=== PATIENT | female | born 1980 | race Caucasian/White ===

== ENCOUNTER 2018-02-19 23:50 | Inpatient (IN) | payer BC, OTHER ==
[2018-02-20] MEDS ORDERED: BUTORPHANOL 1 MG/ML 1 ML VIAL IV PRN (00:15)
[2018-02-20] MEDS ORDERED: METHYLERGONOVINE 0.2 MG/ML 1 ML AMP IM PRN (00:30)
[2018-02-20] MEDS ORDERED: TERBUTALINE 1 MG/ML VIAL SQ PRN (00:30)
[2018-02-20] MEDS ORDERED: CARBOPROST TROMETHAMINE 250 MCG/ML 1 ML AMP IM PRN (00:30)
[2018-02-20] MEDS ORDERED: LIDOCAINE 1% (PF) 10 MG/ML (30 ML SDV) SQ PRN (00:30)
[2018-02-20] MEDS ORDERED: OXYTOCIN 10 UNIT/ML 1 ML VIAL IM PRN (00:30)
[2018-02-20] MEDS: LACTATED RINGERS 1,000 ML IV SCH ×3 (00:53→19:10)
[2018-02-20 00:58] LABS: Anisocytosis Slight; Basophils % (A) 0 %; Eosinophils # (A) 0.2 k/uL (0-0.7); Eosinophils % (A) 2 %; HCT 36.4 % (34.0-46.0); HGB 11.7 gm/dL (11.4-16.0); Lymphocytes # (A) 1.9 k/uL (1.0-4.8); Lymphocytes % (A) 17 %; MCH 28.1 pg (25.0-35.0); MCHC 32.1 g/dL (31.0-37.0); MCV 87.5 fL (80.0-100.0); Mean Platelet Volume 8.6; Monocytes # (A) 0.5 k/uL (0-1.0); Monocytes % (A) 4 %; Neutrophils # (A) 8.3 k/uL (1.3-7.7); Neutrophils % (A) 74 %; Platelet Count 182 k/uL (150-450); RBC 4.16 m/uL (3.80-5.40); RDW 16.8 % (11.5-15.5); WBC 11.1 k/uL (3.8-10.6)
[2018-02-20 01:22] VITALS: BMI 34.3
[2018-02-20] MEDS ORDERED: SODIUM CHLORIDE 0.9% 100 ML BAG ONE (03:30)
[2018-02-20] MEDS ORDERED: ROPIVACAINE 5MG/ML 20ML VIAL ONE (03:30)
[2018-02-20] MEDS ORDERED: fentaNYL (PF) 50 MCG/ML 5 ML AMP ONE (03:30)
[2018-02-20] MEDS: OXYTOCIN 20 UNITS/1000 ML NS 1,000 ML IV SCH (05:00)
--- NOTE | 2018-02-20 10:29 | P.HPOB ---
History of Present Illness H&P Date: 02/20/18 Chief Complaint: 38+ weeks, spontaneous rupture of membranes The patient is a 37-year-old 2 para 1001 admitted at 38+ weeks by early ultrasound with all signs reassuring. Her has been complicated by mild -induced hypertension with normal testing. She also is known to be Rh- and received RhoGAM at 28 weeks. She lastly falls within the category of advanced maternal age and declined any testing for trisomy. On labor and delivery, she is found with documented spontaneous rupture of membranes of clear fluid. Group B strep status is negative. Obstetrical history: 2 para 1001 with 1 term vaginal delivery without apparent complications. Current statistics are listed in history of present illness. EDC of 02/28/2018 was established by an early ultrasound. Laboratory workup demonstrates a blood type of O- with a negative antibody screen. Rubella status is immune. The remainder of the laboratory workup was within normal limits. Early diabetic screen as well as second trimester diabetic screen were within normal limits. Group B strep status is negative. Gynecologic history: Unremarkable with no history of any infections to include STDs. Review of Systems Review of systems is confined to history of present illness. Past Medical History Past Medical History: No Reported History History of Any Multi-Drug Resistant Organisms: None Reported Past Surgical History: Appendectomy Additional Past Surgical History / Comment(s): knee sx Past Anesthesia/Blood Transfusion Reactions: No Reported Reaction Past Psychological History: No Psychological Hx Reported Smoking Status: Never smoker Past Alcohol Use History: None Reported Past Drug Use History: None Reported - Past Family History Father Family Medical History: Coronary Artery Disease (CAD), Hypertension Mother Family Medical History: Hyperlipidemia Medications and Allergies Home Medications Medication Instructions Recorded Confirmed Type Pnv No.95/Ferrous Fum/Folic AC 1 tab PO DAILY 02/20/18 02/20/18 History [ Multivitamin Tablet] Allergies Allergy/AdvReac Type Severity Reaction Status Date / Time No Known Allergies Allergy Verified 02/20/18 00:28 Exam Vital Signs Temp Pulse Resp BP 02/20/18 00:30 98.3 F 101 H 16 140/88 02/20/18 00:28 98.3 F 101 H 16 140/88 Intake and Output 02/19/18 02/20/18 02/20/18 22:59 06:59 14:59 Output Total 550 Balance -550 Output: Urine 550 Straight 550 Other: Weight 90.718 kg In general, this is a well-developed, well-nourished white female in no acute distress. Her heart has a regular rhythm and rate without murmur. Her lungs are clear to auscultation bilaterally in all lopez. Her abdomen is gravid, nondistended, has normal active bowel sounds, is soft, nontender, and without any palpable masses aside from uterine fundus. Her extremities are without any cyanosis, clubbing, or significant edema and are nontender to palpation bilaterally. Most recent digital cervical examination performed by the nurse demonstrates her cervix to be 8 cm dilated, 90% effaced, with the vertex in presentation at -2 station. Spontaneous rupture of membranes has been confirmed. Results Result Diagrams: 02/20/18 00:49 Abnormal Lab Results - Last 24 Hours (Table) 02/20/18 Range/Units 00:49 WBC 11.1 H (3.8-10.6) k/uL RDW 16.8 H (11.5-15.5) % Neutrophils # 8.3 H (1.3-7.7) k/uL Assessment and Plan (1) Spontaneous rupture of amniotic membranes Current Visit: Yes Status: Acute Code(s): HQA0463 - SNOMED Code(s): 158146626 (2) Active labor at term Current Visit: Yes Status: Acute Code(s): FSP1548 - SNOMED Code(s): 88781032 Plan: The patient has been admitted for active management of labor. Pitocin augmentation has been started and an epidural catheter is in place for analgesia. She will continue to have close maternal and surveillance and expectant management will be practiced.
[2018-02-20] MEDS ORDERED: ceFAZolin IN SWFI 2 GM/20 ML SYRINGE IVP ONE (12:24)
[2018-02-20] MEDS ORDERED: CITRIC ACID-SODIUM CITRATE 15 ML CUP PO ONE (12:24)
[2018-02-20] MEDS ORDERED: OXYTOCIN 10 UNIT/ML 1 ML VIAL ONE (12:55)
[2018-02-20] MEDS ORDERED: ONDANSETRON 4 MG/2 ML VIAL ONE (12:55)
[2018-02-20] MEDS ORDERED: KETOROLAC 30 MG/ML 1 ML VIAL ONE (12:55)
[2018-02-20] MEDS ORDERED: MORPHINE SULFATE (PF) 0.3 MG/0.3 ML SYR ONE (12:55)
[2018-02-20] MEDS ORDERED: CHLOROPROCAINE 3% 30 MG/ML 20 ML VIAL ONE (12:55)
[2018-02-20] MEDS ORDERED: PHENYLEPHRINE-0.9% NACL SYG 1 MG/10 ML SYRINGE ONE (12:55)
[2018-02-20] MEDS ORDERED: NALBUPHINE 10 MG/ML VIAL (10ML MDV) ONE (12:55)
[2018-02-20] MEDS ORDERED: diphenhydrAMINE 50 MG/ML 1 ML VIAL IVP PRN ×2 (13:44)
[2018-02-20] MEDS ORDERED: ONDANSETRON 4 MG/2 ML VIAL IVP PRN (13:44)
[2018-02-20] MEDS ORDERED: NALOXONE 0.4 MG/ML 1 ML VIAL IV PRN (13:44)
[2018-02-20] MEDS ORDERED: diphenhydrAMINE 25 MG CAP PO PRN (13:44)
[2018-02-20] MEDS ORDERED: SIMETHICONE 80 MG CHEWABLE PO PRN (13:44)
[2018-02-20] MEDS ORDERED: diphenhydrAMINE 50 MG CAP PO PRN (13:44)
[2018-02-20] MEDS ORDERED: ACETAMINOPHEN TAB 325 MG TAB PO PRN (13:44)
[2018-02-20] MEDS ORDERED: HYDROcodone/APAP 7.5-325MG 1 EACH TAB PO PRN (13:44)
[2018-02-20] MEDS ORDERED: ZOLPIDEM 5 MG TAB PO PRN (13:44)
[2018-02-20] MEDS ORDERED: METOCLOPRAMIDE 5 MG/ML 2 ML VIAL IVP PRN (13:44)
[2018-02-20] MEDS ORDERED: OXYTOCIN 20 UNITS/1000 ML NS 1,000 ML IV SCH (13:45)
--- NOTE | 2018-02-20 13:53 | P.OP ---
Date of Procedure: 02/20/18 Preoperative Diagnosis: #1. 38-5/7 weeks, labor #2. Advanced maternal age #3. Rh- #4. Arrest of dilation and descent #5. Occiput posterior position Postoperative Diagnosis: Same Procedure(s) Performed: #1. Primary low-transverse section Anesthesia: epidural Surgeon: Vikas Munoz Restorative Coordinator #1: Dominik Vega Estimated Blood Loss (ml): 600 IV fluids (ml): 600 Urine output (ml): 200 Pathology: none sent Condition: stable Disposition: floor Operative Findings: Preoperatively, the patient had been making extraordinarily slow progress through the active phase of labor and ultimately progressed to approximately 9 cm to anterior lip. An attempt was made to push past the anterior lip despite the fact that the head remained at -2 station. Further evaluation determined that the fetus was in occiput posterior presentation and that there was no further descent despite adequate pushing. The patient was counseled and taken the operating room where she underwent primary low-transverse section in an incompetent fashion and was delivered of a viable 8 lbs. 10 oz. baby boy with Apgars of 7 at 1 minute and 9 at 5 minutes delivered in the direct occiput posterior position. There was a loose body cord was reduced following delivery of the infant. The placenta was delivered manually, intact, and grossly normal with a grossly normal three-vessel cord. The uterus, tubes, and ovaries were entirely normal to inspection. Description of Procedure: The patient was prepped and draped in usual fashion after epidural anesthesia was bolused by the anesthesiologist. A Pfannenstiel incision was made and extended into the abdominal cavity without difficulty. The bladder peritoneum was left intact as the bladder was far distal to the intended site of incision. A 2 cm incision was made in the lower uterine segment to enter the uterus at which time clear fluid was again noted. The incision was extended in both directions bluntly. The head was encountered relatively deep in the pelvis in the direct occiput posterior position but was easily delivered up and through the incision where the nose and mouth were thoroughly suctioned. The remainder of the infant was delivered onto the field. The body cord was then reduced after delivery as well. The cord was doubly clamped, cut, and the infant passed for resuscitative measures with weight and Apgars as noted above. cord blood was collected for evaluation for the necessity of RhoGAM. A segment of cord was doubly clamped, cut, and set aside should cord gases become necessary. The placenta was delivered manually, intact, and grossly normal with a grossly normal three-vessel cord. Uterus was exteriorized and the interior cavity of the uterus swept of any remaining placental or membranous fragments. The margins of the incision were grasped with Delacruz clamps and the incision was closed in 2 layers. The first layer was a running locking stitch of 0 chromic catgut followed by a running imbricating stitch of 0 chromic catgut. Hemostasis appeared to be excellent. The posterior cul-de-sac was suctioned using a guard and the normal uterine and ovarian findings were noted as above. The uterus was replaced within the abdominal cavity and the gutters swept of any remaining blood, fluid, or clot. The incision was reexamined and found to be hemostatic throughout. The parietal peritoneum was loosely reapproximated and layer of muscles examined and found to be hemostatic. The fascia was closed with 2 running stitches of 0 Vicryl proceeding from the lateral margins to the midpoint. The subcutaneous tissues were irrigated, made hemostatic with the Bovie, and reapproximated with a running stitch of 30 plain catgut. The skin was reapproximated with a running subcuticular stitch of 4-0 Vicryl followed by half-inch Steri-Strips placed with Mastisol. Estimated blood loss for the case was approximately 600 mL. There were no complications. All sponge, instrument, and needle counts were correct. The patient proceeded to the recovery room in stable condition. Both mother and are resting comfortably in recovery.
[2018-02-20] MEDS ORDERED: Rhogam IMMUNE GLOBULIN 1,500 UNIT/1 ML IM ONE (16:42)
[2018-02-20] MEDS: KETOROLAC 30 MG/ML 1 ML VIAL IVP PRN (20:23)
[2018-02-21] MEDS: KETOROLAC 30 MG/ML 1 ML VIAL IVP PRN ×2 (03:44→09:40)
[2018-02-21] MEDS: LACTATED RINGERS 1,000 ML IV SCH ×4 (03:45→23:07)
[2018-02-21] MEDS: SENNOSIDES-DOCUSATE SODIUM 1 EACH TAB PO SCH ×3 (03:46→20:04)
[2018-02-21 07:02] LABS: Anisocytosis Slight; Basophils % (A) 0 %; Eosinophils # (A) 0.1 k/uL (0-0.7); Eosinophils % (A) 1 %; HCT 28.2 % (34.0-46.0); Lymphocytes # (A) 1.5 k/uL (1.0-4.8); Lymphocytes % (A) 12 %; MCH 30.4 pg (25.0-35.0); MCHC 34.6 g/dL (31.0-37.0); MCV 87.9 fL (80.0-100.0); Mean Platelet Volume 8.7; Monocytes # (A) 0.4 k/uL (0-1.0); Monocytes % (A) 3 %; Neutrophils # (A) 10.8 k/uL (1.3-7.7); Neutrophils % (A) 83 %; Platelet Count 152 k/uL (150-450); RBC 3.21 m/uL (3.80-5.40); RDW 17.3 % (11.5-15.5)
[2018-02-21 07:04] LABS: HGB 9.8 gm/dL (11.4-16.0)
--- NOTE | 2018-02-21 07:50 | P.PN ---
Subjective Progress Note Date: 02/21/18 Slept well. Positive flatus. Pain well controlled. No complaints Objective - Vital Signs Vital signs: Vital Signs Temp 98.2 F 02/21/18 04:00 Pulse 81 02/21/18 04:00 Resp 16 02/21/18 04:00 BP 120/84 02/21/18 04:00 Pulse Ox 98 02/21/18 04:00 Intake & Output 02/20/18 02/21/18 02/21/18 18:59 06:59 18:59 Output Total 950 1600 Balance -950 -1600 Output: Urine 950 1600 Straight 550 700 - Constitutional General appearance: Present: average body habitus, cooperative - EENT Eyes: Present: PERRLA ENT: Present: hearing grossly normal - Neck Neck: Present: normal ROM - Respiratory Respiratory: bilateral: CTA - Cardiovascular Rhythm: regular - Gastrointestinal General gastrointestinal: Present: normal bowel sounds - Genitourinary Genitourinary Comment(s): Incision clean and dry, intact, Steri-Strips applied. Fundus firm, midline, symmetric, 18 week size, nontender - Integumentary Integumentary: Present: normal - Neurologic Neurologic: Present: CNII-XII intact - Musculoskeletal Musculoskeletal: Present: strength equal bilaterally - Psychiatric Psychiatric: Present: A&O x's 3, appropriate affect, intact judgment & insight - Labs CBC & Chem 7: 02/21/18 06:42 Labs: Abnormal Lab Results - Last 24 Hours (Table) 02/21/18 Range/Units 06:42 WBC 13.0 H (3.8-10.6) k/uL RBC 3.21 L (3.80-5.40) m/uL Hgb 9.8 L D (11.4-16.0) gm/dL Hct 28.2 L (34.0-46.0) % RDW 17.3 H (11.5-15.5) % Neutrophils # 10.8 H (1.3-7.7) k/uL Assessment and Plan Assessment: Postoperative day #1, doing well Plan: Advance diet and activity. May DC IV. Possible discharge home tomorrow. Time with Patient: Less than 30
[2018-02-21] MEDS: HYDROcodone/APAP 5-325MG 1 EACH TAB PO PRN ×2 (12:06→18:44)
[2018-02-21] MEDS: IBUPROFEN 600 MG TAB PO PRN ×2 (15:39→22:13)
[2018-02-21] MEDS: OXYTOCIN 20 UNITS/1000 ML NS 1,000 ML IV SCH (23:07)
[2018-02-22] MEDS: IBUPROFEN 600 MG TAB PO PRN ×2 (04:17→13:10)
[2018-02-22] MEDS: SENNOSIDES-DOCUSATE SODIUM 1 EACH TAB PO SCH (07:49)
--- NOTE | 2018-02-22 09:40 | P.DS ---
Providers Date of admission: 02/20/18 00:12 Expected date of discharge: 02/22/18 Attending physician: Nella Pope Primary care physician: Nella [facility] Course: This is a 37-year-old white female 2 para 1001 EDC 02/28/2018 at 38-5/7 weeks' gestation. Patient presented in active spontaneous labor, essentially unremarkable. Group B strep cultures negative, rubella status immune. Please see dictated history and physical for details. Patient progressed to the first stage of labor and became completely dilated. There was however arrest of descent in the second stage of labor, with occiput posterior position noted. Decision was made to proceed with primary low transverse section. She underwent a low-transverse section and gave to a liveborn male infant with scores of 7 and 9 at one and 5 minutes respectively. weighed 3910 g or 8 lbs. 10 oz. and was found to be in the direct occiput posterior position. Please see dictated operative note for details. Today the patient is doing very well. She is voiding, ambulating and passing flatus without difficulty. Vital signs are stable and she is afebrile. Fundus is firm in the midline, symmetric and 18 week size. Incision is clean and dry was Steri-Strips applied. [place] is doing well in the nursery and is also ready for discharge home. Patient is being discharged home today in good condition. She will follow-up with me in the office in 2 weeks. I have reminded her no intercourse, tampons or douching. She will use zxjp-hpr-irerazo Aleve as needed for pain. No driving, no heavy lifting, no excessive activities for the next 2 weeks. She will follow-up in the office with me in 2 weeks. I've asked her to call with any fevers shakes or chills, foul smelling or copious lochia, with the passage of large blood clots, with any pain not alleviated by zidj-sdr-vozybzy products , or indeed with any concerns. Patient Condition at Discharge: Good Plan - Discharge Summary New Discharge Prescriptions: No Action Pnv No.95/Ferrous Fum/Folic AC [ Multivitamin Tablet] 1 tab PO DAILY Discharge Medication List Pnv No.95/Ferrous Fum/Folic AC [ Multivitamin Tablet] 1 tab PO DAILY 12/03 [History] Follow up Appointment(s)/Referral(s): Nella Pope MD [Primary Care Provider] - 2 Weeks Discharge Disposition: HOME SELF-CARE
[2018-02-22 10:08] VITALS: BP 140/66; PULSE 95; RESP 18; TEMP 98.2
== END 2018-02-22 13:22 | disposition home or self-care (01) | DRG 766 ==
LOC: FBPOP 23:50 → 4FBP 02-20 00:12
PROVIDERS: ADMIT Obstetrics & Gynecology; ATTEND Obstetrics & Gynecology
PROC: 3E0234Z Introduction of Serum, Toxoid and Vaccine into Muscle, Percutaneous Approach (ICD-10-PCS; 2018-02-20)
PROC: 00HU33Z Insertion of Infusion Device into Spinal Canal, Percutaneous Approach (ICD-10-PCS; 2018-02-20)
PROC: 10D00Z1 Extraction of Products of Conception, Low, Open Approach (ICD-10-PCS; principal; 2018-02-20 12:19)
DX: O62.1 Secondary uterine inertia (principal); O13.4 Gestational [pregnancy-induced] hypertension without significant proteinuria, complicating childbirth; O26.893 Other specified pregnancy related conditions, third trimester; Z67.41 Type O blood, Rh negative; Z37.0 Single live birth; Z3A.38 38 weeks gestation of pregnancy; Z79.899 Other long term (current) drug therapy; Z82.49 Family history of ischemic heart disease and other diseases of the circulatory system; Z83.49 Family history of other endocrine, nutritional and metabolic diseases; Z87.442 Personal history of urinary calculi
CPT/HCPCS: 59025; 84112; 85025; 85461; 86850; 86900; 86901; 99213

== ENCOUNTER 2018-04-07 11:52 | Emergency (ER) | payer BC, OTHER ==
--- NOTE | 2018-04-07 11:19 | US ---
EXAMINATION TYPE: US venous doppler duplex LE DATE OF EXAM: 04/07/2018 11:07 AM COMPARISON: NONE CLINICAL HISTORY: R22.42 SWELLING LT LOWER LIMB,M79.661 PAIN IN RT LOWER LIMB. Patient stated is 6 we eks post from C Section delivery; had rt calf pain in third trimester and currently; c/o left anterior soft tissue swelling SIDE PERFORMED: Bilateral TECHNIQUE: The lower extremity deep venous system is examined utilizing real time linear array sonog debbie with graded compression, doppler sonography and color-flow sonography. VESSELS IMAGED: Common Femoral Vein Deep Femoral Vein Greater Saphenous Vein * Femoral Vein Popliteal Vein Small Saphenous Vein * Proximal Calf Veins (* superficial vessels) Right Leg: is POSITIVE for non occluding DVT lower right CFV,and Upper Right Femoral Vein at valves. Left Leg: Negative for DVT. No soft tissue mass is seen at patient's c/o palpable left anterior lowe r leg. IMPRESSION: 1. Right leg positive for DVT nonocclusive type. 2. No evidence for DVT left lower extremity.
[2018-04-07 12:11] VITALS: BP 131/87; PULSE 66; RESP 18; TEMP 98.5
[2018-04-07] MEDS ORDERED: HEPARIN SODIUM,PORCINE 5,000 UNIT/ML 1 ML VIAL IV STA (12:56)
--- NOTE | 2018-04-07 12:59 | ED ---
Extremity Problem HPI - General Chief complaint: Extremity Problem,Nontraumatic Stated complaint: Leg pain came from US Time Seen by Provider: 04/07/18 12:25 Source: patient, RN notes reviewed Mode of arrival: ambulatory Limitations: no limitations - History of Present Illness Initial comments: This is a 37-year-old female who just delivered a baby about 6 weeks ago by C- section who is complaining some right calf tenderness and pain for the past number of weeks. She had an outpatient ultrasound that was just show evidence of a DVT in the right lower extremity. She has a chest pain shortness breath fevers chills nausea vomiting sweats or other symptoms. He was sent here for evaluation. MD Complaint: extremity pain - Related Data Home Medications Medication Instructions Recorded Confirmed Pnv No.95/Ferrous Fum/Folic AC 1 tab PO DAILY 02/20/18 04/07/18 [ Multivitamin Tablet] Allergies Allergy/AdvReac Type Severity Reaction Status Date / Time amoxicillin Allergy Rash/Hives Verified 04/07/18 12:53 Review of Systems ROS Statement: Those systems with pertinent positive or pertinent negative responses have been documented in the HPI. ROS Other: All systems not noted in ROS Statement are negative. Past Medical History Past Medical History: No Reported History History of Any Multi-Drug Resistant Organisms: None Reported Past Surgical History: Appendectomy Additional Past Surgical History / Comment(s): knee sx Past Anesthesia/Blood Transfusion Reactions: No Reported Reaction Past Psychological History: No Psychological Hx Reported Smoking Status: Never smoker Past Alcohol Use History: None Reported Past Drug Use History: None Reported - Past Family History Father Family Medical History: Coronary Artery Disease (CAD), Hypertension Mother Family Medical History: Hyperlipidemia General Exam - General Exam Comments Initial Comments: This is a well-developed well-nourished awake alert oriented 3 female Limitations: no limitations General appearance: alert, in no apparent distress Head exam: Present: atraumatic, normocephalic, normal inspection Eye exam: Present: normal appearance, PERRL, EOMI. Absent: scleral icterus, conjunctival injection, periorbital swelling ENT exam: Present: normal exam, mucous membranes moist Neck exam: Present: normal inspection. Absent: tenderness, meningismus, lymphadenopathy Respiratory exam: Present: normal lung sounds bilaterally. Absent: respiratory distress, wheezes, rales, rhonchi, stridor Cardiovascular Exam: Present: regular rate, normal rhythm, normal heart sounds. Absent: systolic murmur, diastolic murmur, rubs, gallop, clicks GI/Abdominal exam: Present: soft, normal bowel sounds. Absent: distended, tenderness, guarding, rebound, rigid Extremities exam: Present: normal inspection, full ROM, tenderness, normal capillary refill, other (Tenderness over the right calf to palpation circumference appears be consistent with the left side. No palpable cords.). Absent: pedal edema, joint swelling, calf tenderness Back exam: Present: normal inspection Neurological exam: Present: alert, oriented X3, CN II-XII intact Psychiatric exam: Present: normal affect, normal mood Skin exam: Present: warm, dry, intact, normal color. Absent: rash Course Vital Signs 04/07/18 12:08 Temperature 98.5 F Pulse Rate 66 Respiratory 18 Rate Blood Pressure 131/87 O2 Sat by Pulse 99 Oximetry Medical Decision Making - Medical Decision Making I did discuss the findings with the patient as well as with Dr. Neal who did see the patient emerged department patient will be admitted for anticoagulation therapy. Disposition Clinical Impression: Deep vein thrombosis of lower extremity Disposition: ADMITTED IP TO THIS HOSP Condition: Stable Referrals: None,Stated [Primary Care Provider] - 1-2 days
[2018-04-07] MEDS ORDERED: HEPARIN SOD,PORK IN 0.45% NACL 25,000 UNIT in 0.45% NACL 1 500ML.BAG IV SCH (13:00)
[2018-04-07] MEDS ORDERED: NALOXONE 0.4 MG/ML 1 ML VIAL IV PRN (13:12)
--- NOTE | 2018-04-07 13:22 | ED ---
Medical Decision Making - Medical Decision Making Patient was seen and evaluated by the hospitalist. Patient has now agreed that she can be treated as an outpatient initially she was uncomfortable with this. She'll be placed on Elaquis Disposition Clinical Impression: Deep vein thrombosis of lower extremity Disposition: HOME SELF-CARE Condition: Good Is patient prescribed a controlled substance at d/c from ED?: No Referrals: None,Stated [REFERRING] - 1-2 days
[2018-04-07] MEDS ORDERED: APIXABAN 5 MG TAB PO ONE (13:30)
--- NOTE | 2018-04-07 15:17 | P.CONS ---
History of Present Illness - Reason for Consult Possible admission - History of Present Illness 37-year-old female who just delivered a baby about 6 weeks ago by who is complaining some right calf tenderness and pain for the past number of weeks. She had an outpatient ultrasound that was just show evidence of a DVT in the right lower extremity. She has a chest pain shortness breath fevers chills nausea vomiting sweats or other symptoms. He was sent here for evaluation. Patient has the having this ago lower leg pain since her third trimester. Next Patient is comfortable is only having cramping sensation which she can use Tylenol. Patient is not and will not be breast-feeding because of which I'll discharge her on a eliquis 10 twice a day for a week followed by 5 mg twice a day continue for 3 months. Patient has precipitated DVT secondary to and section. Anti-coagulation can be discontinued after 3 months of therapy and need to be tested for procoagulant conditions a month after discontinuation of this medication Review of Systems REVIEW OF SYSTEMS: CONSTITUTIONAL: No fever, no malaise, no fatigue. HEENT: No recent visual problems or hearing problems. Denied any sore throat. CARDIOVASCULAR: No chest pain, orthopnea, PND, no palpitations, no syncope. PULMONARY: No shortness of breath, no cough, no hemoptysis. GASTROINTESTINAL: No diarrhea, no nausea, no vomiting, no abdominal pain. Normoactive bowel sounds. NEUROLOGICAL: No headaches, no weakness, no numbness. HEMATOLOGICAL: Denies any bleeding or petechiae. GENITOURINARY: Denies any burning micturition, frequency, or urgency. MUSCULOSKELETAL/RHEUMATOLOGICAL: Denies any joint pain, swelling, or any muscle pain. ENDOCRINE: Denies any polyuria or polydipsia. The rest of the 14-point review of systems is negative. Past Medical History Past Medical History: No Reported History History of Any Multi-Drug Resistant Organisms: None Reported Past Surgical History: Appendectomy Additional Past Surgical History / Comment(s): knee sx Past Anesthesia/Blood Transfusion Reactions: No Reported Reaction Past Psychological History: No Psychological Hx Reported Smoking Status: Never smoker Past Alcohol Use History: None Reported Past Drug Use History: None Reported - Past Family History Father Family Medical History: Coronary Artery Disease (CAD), Hypertension Mother Family Medical History: Hyperlipidemia Medications and Allergies Home Medications Medication Instructions Recorded Confirmed Type Pnv No.95/Ferrous Fum/Folic AC 1 tab PO DAILY 02/20/18 04/07/18 History [ Multivitamin Tablet] Allergies Allergy/AdvReac Type Severity Reaction Status Date / Time amoxicillin Allergy Rash/Hives Verified 04/07/18 12:53 Physical Exam Vitals: Vital Signs Temp Pulse Resp BP Pulse Ox 04/07/18 12:08 98.5 F 66 18 131/87 99 Intake and Output 04/07/18 04/07/18 04/07/18 06:59 14:59 22:59 Other: Weight 84.368 kg PHYSICAL EXAMINATION: GENERAL: The patient is alert and oriented x3, not in any acute distress. Well developed, well nourished. HEENT: Pupils are round and equally reacting to light. EOMI. No scleral icterus. No conjunctival pallor. Normocephalic, atraumatic. No pharyngeal erythema. No thyromegaly. CARDIOVASCULAR: S1 and S2 present. No murmurs, rubs, or gallops. PULMONARY: Chest is clear to auscultation, no wheezing or crackles. ABDOMEN: Soft, nontender, nondistended, normoactive bowel sounds. No palpable organomegaly. MUSCULOSKELETAL: No joint swelling or deformity. EXTREMITIES: No cyanosis, clubbing, or pedal edema. NEUROLOGICAL: Gross neurological examination did not reveal any focal deficits. SKIN: No rashes. Assessment and Plan Plan: -Right leg DVT: Anti-correlation as mentioned above further management as mentioned above -Pain in the right leg patient was recommended to use Tylenol or as-needed basis. Discussed with the patient at length patient is immune medically stable I do not believe hospitalization is necessary same thing was recommended to the patient and patient is agreeable. Appropriate prescriptions were provided
[2018-04-07] MEDS ORDERED: APIXABAN 5 MG TAB PO SCH (21:00)
== END 2018-04-07 14:19 | disposition home or self-care (01) ==
LOC: EC 11:52
DX: I82.401 Acute embolism and thrombosis of unspecified deep veins of right lower extremity (principal); Z88.0 Allergy status to penicillin
CPT/HCPCS: 93970; 99284

== ENCOUNTER → 2018-06-23 | Outpatient (CLI) | payer BC, OTHER ==
--- NOTE | 2018-06-23 14:24 | US ---
EXAMINATION TYPE: US venous doppler duplex LE RT DATE OF EXAM: 06/23/2018 10:47 AM COMPARISON: 04/07/2018 CLINICAL HISTORY: 38-year-old female I82.401 Acute embolism and thrombosis of unspecified. Pain. SIDE PERFORMED: Right TECHNIQUE: The lower extremity deep venous system is examined utilizing real time linear array sonog debbie with graded compression, doppler sonography and color-flow sonography. FINDINGS: VESSELS IMAGED: External Iliac Vein (EIV) Common Femoral Vein Deep Femoral Vein Greater Saphenous Vein * Femoral Vein Popliteal Vein Small Saphenous Vein * Proximal Calf Veins (* superficial vessels) Right Leg: Negative for DVT IMPRESSION: No evidence for DVT within the right lower extremity imaged from the groin to the upper calf. The pre viously described common femoral and superficial femoral vein junction DVT has cleared.
== END | disposition home or self-care (01) ==
LOC: RADUSWWP 10:12
PROVIDERS: ATTEND Family Medicine
DX: I82.401 Acute embolism and thrombosis of unspecified deep veins of right lower extremity (principal)